=== PATIENT | male | born 2000 | race Hispanic/Latino ===

== ENCOUNTER 2022-12-28 08:58 | Emergency (ER) | payer OTHER ==
[~2022-12-28] VITALS: Ht 172.7 cm; Wt 83.0 kg
[2022-12-28 09:37] VITALS: BP 122/80
[2022-12-28 10:00] VITALS: BP 113/69
[2022-12-28 10:30] VITALS: BP 106/63
[2022-12-28 11:00] VITALS: BP 129/81
[2022-12-28 12:11] VITALS: BP 129/81
== END 2022-12-28 12:35 | disposition home or self-care (01) | DRG 156 ==
LOC: ED 08:58
DX: J34.89 Other specified disorders of nose and nasal sinuses (principal); V49.50XA Passenger injured in collision with unspecified motor vehicles in traffic accident, initial encounter